=== PATIENT | female | born 1995 | race Caucasian/White ===

== ENCOUNTER 2016-10-14 15:14 | Emergency (ER) | payer OTHER ==
[2016-10-14 15:30] VITALS: BP 138/92; PULSE 92; TEMP 98.5; BMI 31.7
--- NOTE | 2016-10-14 16:00 | PDOC ---
History of Present Illness - General Chief Complaint: Eye Problem Stated Complaint: INFECTED EYES Time Seen by Provider: 10/14/16 15:38 History Source: Patient - History of Present Illness Timing/Duration: reports: week Associated Symptoms: reports: nasal congestion, nasal drainage. denies: cough, earache, facial pain, fever/chills, headache, muscle aches, sore throat Past History - Past Medical History Allergies/Adverse Reactions: Allergies Allergy/AdvReac Type Severity Reaction Status Date / Time No Known Allergies Allergy Verified 09/21/13 07:36 Home Medications: Ambulatory Orders No Home Medications 0 dose .ROUTE UTDICT 07/20/12 Erythromycin 0.5% Eye Ointment [Erythromycin 0.5% Eye Ointment -] 1 applic OU DAILY #1 tube 10/14/16 Asthma: No Cancer: No Cardiac Disorders: No Diabetes: No HTN: No Suicide Attempt (Hx): No Seizures: No Thyroid Disease: No - Immunization History Immunization Up to Date: Yes - Psycho/Social/Smoking Cessation Hx Anxiety: No Suicidal Ideation: No Smoking Status: No Smoking History: Never smoked Have you smoked in the past 12 months: No Number of Cigarettes Smoked Daily: 0 Information on smoking cessation initiated: No Hx Alcohol Use: No Drug/Substance Use Hx: No Substance Use Type: None Hx Substance Use Treatment: No Review of Systems - Review of Systems Constitutional: No: Chills, Fever HEENTM: Yes: Nose Congestion. No: Ear Pain, Throat Pain Respiratory: No: Cough *Physical Exam - Vital Signs Last Vital Signs Temp Pulse Resp BP Pulse Ox 98.5 F 92 H 20 138/92 100 10/14/16 15:27 10/14/16 15:27 10/14/16 15:27 10/14/16 15:27 10/14/16 15:27 - Physical Exam General Appearance: Yes: Appropriately Dressed. No: Apparent Distress HEENT: positive: Normal Voice, TMs Normal, Pharynx Normal, Other (b/l conjunc erythema, L>>R w/ yellowish discharge to R eye). negative: Scleral Icterus (R) , Scleral Icterus (L) Neck: negative: Lymphadenopathy (R), Lymphadenopathy (L) Respiratory/Chest: negative: Respiratory Distress Integumentary: positive: Dry, Warm Neurologic: positive: Fully Oriented, Alert, Normal Mood/Affect Medical Decision Making - Medical Decision Making 10/14/16 15:58 21-year-old female, no significant history, here with nasal congestion and bilateral conjunctival erythema with discharge 1 week. No visual changes, foreign body sensation or photophobia. Denies fever or chills. 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 Does not wear any contact lens. Patient well-appearing and stable with bilateral conjunctival erythema, left >> than right with small amount of yellowish discharge to right eye on exam. Will DC with erythromycin ointment and supportive treatment for URI. Contact precautions given *DC/Admit/Observation/Transfer Diagnosis at time of Disposition: URI (upper respiratory infection) Qualifiers: URI type: unspecified viral URI Qualified Code(s): J06.9 - Acute upper respiratory infection, unspecified; B97.89 - Other viral agents as the cause of diseases classified elsewhere Conjunctivitis Qualifiers: Conjunctivitis type: acute Acute conjunctivitis type: unspecified Laterality: bilateral Qualified Code(s): H10.33 - Unspecified acute conjunctivitis, bilateral - Discharge Dispostion Disposition: HOME Condition at time of disposition: Good - Prescriptions Prescriptions: Erythromycin 0.5% Eye Ointment [Erythromycin 0.5% Eye Ointment -] 1 applic OU DAILY #1 tube - Patient Instructions Printed Discharge Instructions: DI for Viral Upper Respiratory Infection -- Adult, Conjunctivitis - Post Discharge Activity Work/School Note: Back to Work
== END 2016-10-14 15:59 | disposition home or self-care (01) ==
LOC: JERFT 15:14
DX: J06.9 Acute upper respiratory infection, unspecified (principal); B97.89 Other viral agents as the cause of diseases classified elsewhere; H10.33 Unspecified acute conjunctivitis, bilateral
CPT/HCPCS: 99281-25